=== PATIENT | male | born 1960 | race Caucasian/White ===

== ENCOUNTER 2019-10-25 06:02 | Day surgery (SDC) | payer BC ==
[~2019-10-25] VITALS: Ht 165.1 cm; Wt 81.6 kg
[2019-10-25 06:30] VITALS: BP 129/83; PULSE 77; TEMP 97.8
[2019-10-25] MEDS ORDERED: CENTRUM CHEWAB1 EAC3 PO (06:35)
[2019-10-25 08:35] VITALS: BP 110/75; PULSE 72; TEMP 97.5
--- NOTE | 2019-10-25 08:35 | NUR ---
PATIENT TRANSPORTED PER CART TO BAY 1 ACCOMPANIED BY ENDO STAFF. MONITORS APPLIED. PATIENT ON ROOM AIR. VSS. PATIENT'S AT BEDSIDE. PATIENT AMBULATED FROM CART TO CHAIR WITH STEADY GAIT. VERBAL REPORT RECEIVED. PATIENT TALKS WITH STAFF. 0840 PATIENT GIVEN COFFEE TO DRINK.
[2019-10-25 08:45] VITALS: BP 110/87; PULSE 73
--- NOTE | 2019-10-25 08:45 | NUR ---
VSS ON ROOM AIR. PATIENT DENIES DISCOMFORT AND NAUSEA. PATIENT DRINKING COFFEE WITHOUT PROBLEMS. PATIENT GIVEN TOAST TO EAT.
[2019-10-25 09:14] VITALS: BP 124/90; PULSE 70
[2019-10-25 09:15] VITALS: BP 120/91; PULSE 66
--- NOTE | 2019-10-25 09:15 | NUR ---
VSS. PATIENT TAKING TOAST WITHOUT PROBLEMS. PATIENT STATES HE IS FEELING FINE AND READY TO GO HOME. 0916 PATIENT GIVEN VERBAL AND WRITTEN DISCHARGE PACKET. QUESTIONS ANSWERED AND PATIENT VOICED UNDERSTANDING. 0920 IV SITE DC'D INTACT WITH CATHETER TIP. PRESSURE AND BANDAGE APPLIED. PATIENT CHANGES INTO [place] [employer].
--- NOTE | 2019-10-25 09:30 | NUR ---
PATIENT TRANSPORTED PER WHEEL CHAIR ACCOMPANIED BY STAFF MEMBER TO DOWNSTAIRS TO [facility]. DRIVING CAR.
== END 2019-10-25 09:30 | disposition home or self-care (01) ==
LOC: SDCO 06:02
DX: Z12.11 Encounter for screening for malignant neoplasm of colon (principal); K60.1 Chronic anal fissure; Z20.828 Contact with and (suspected) exposure to other viral communicable diseases
CPT/HCPCS: J0585; J2704; J3010; J7120